=== PATIENT | female | born 1970 | race Caucasian/White ===

== ENCOUNTER 2016-10-22 01:35 | Emergency (ER) | payer MEDICARE, MEDICAID ==
--- NOTE | 2016-10-22 02:21 | ERNOTE ---
Chest Pain/Cardiac HPI Date of Service: 10/22/16 Chief Complaint: Chest Pain Time Seen by Provider: 10/22/16 02:09 Source: patient Exam Limitations: no limitations Immunizations: IMMUNIZATION HX Immunizations Up to Date Yes History of Influenza Vaccine Yes Hx Pneumococcal Vaccination No Allergies/Adverse Reactions: Allergies No Known Allergies Allergy (Verified 10/22/16 01:58) Home Medications: HOME MEDICATIONS Allopurinol [Zyloprim (Allopurinol)] 150 mg PO DAILY 02/03/15 [Last Taken Unknown] Cinacalcet HCl [Sensipar] 60 mg PO DAILY 02/03/15 [Last Taken Unknown] Sertraline HCl [Zoloft] 50 mg PO DAILY 02/03/15 [Last Taken Unknown] Sevelamer Carbonate [Renvela] 3,200 mg PO AC 02/03/15 [Last Taken Unknown] Oxycodone HCl/Acetaminophen [Oxycodone-Acetaminophen 5-325] 1 each PO Q6H PRN # 16 tablet 02/04/15 [Last Taken Unknown] Narrative: Here for chest pains that she has had for "long time". pain is specific in left side of chest and able to be reproduced. No radiation. at times it is pressure like and pt has been doing pulling and pushing activities. Denies any trauma to chest. Had dialysis this am. Has had some anxiety and pressure in the head Review of Systems - Review of Systems Constitutional: Present: no symptoms reported EYE: Present: no symptoms reported ENT: Present: no symptoms reported Respiratory: Present: no symptoms reported Cardiology: Present: See HPI Gastrointestinal/Abdominal: Present: no symptoms reported Genitourinary: Present: no symptoms reported Musculoskeletal: Present: See HPI Skin: Present: no symptoms reported - Patient's Past Medical History Patient History - Medical: Anxiety, Fibromyalgia, GERD, Renal Disease, Renal Failure, UTI'S, Other Patient History - Cardiac/Respiratory: Hypertension Patient History - Cancer: No Hx of Cancer Patient History - Surgical Procedures: Cholecystectomy, Other Patient History - Other: None LMP (females 10-50): 1 month LMP (Calendar): 02/02/16 - Social History Living Situations: significant other Abuse History: No History of abuse Psych History: Hx of Anxiety, Hx of Depression Smoking Status: Never smoker Have you smoked in the past 12 months: No Do you dip or chew tobacco: No Alcohol Use: none Drug Use: none - Immunizations Immunizations Up to Date: Yes Hx Pneumococcal Vaccination: No History of Influenza Vaccine: Yes Physical Exam - Physical Exam General Appearance: Present: wd/wn, alert, no apparent distress, anxious Eye Exam: Normal inspection: bilateral, PERRL: bilateral, EOMI: bilateral Ears, Nose, Throat: Present: normal ENT inspection Neck: Present: normal inspection Respiratory: Present: no respiratory distress Cardiovascular/Chest: Present: regular rate, rhythm - I do hear a blowing murmur in this patient., other - I am able to press on the left side of the patient's upper chest wall and reproduce the exact kind of pain the patient has been feeling. Pain is completely reproducible by my exam. Gastrointestinal/Abdominal: Present: normal bowel sounds ED Progress - Vital Signs Patient's Vital Signs:: I have reviewed the patient's vital signs. Vital Signs: Vital Signs 10/22/16 10/22/16 01:36 01:52 Temperature 37.9 C H Pulse Rate 83 85 Respiratory 18 Rate Blood Pressure 133/83 - X-Ray X-Ray #1 X-Ray: chest - normal - Progress/Reassessment Chief Complaint: Chest Pain Departure - Departure Clinical Impression: Costochondritis Disposition: Home self-care Condition: Good Instructions: Costochondritis, [id number]
[2016-10-22] MEDS ORDERED: ACETAMINOPHEN 500 MG TABLET PO ONE ×2 (02:33→02:34)
--- OUTSIDE RECORDS SUMMARY | 2016-10-22 02:39 | XMS REPORT | Continuity of Care Document ---
:1970 Author Organization [facility] ([facility]) Address [address] [place] [address] Phone [phone] Care Team Providers Name Role Phone Provider, No-Primary Care Primary Care Provider Unavailable Source Comments This disclosure is being made pursuant to the Care Everywhere program, applicable federal and state laws, and may not contain all informaitonavailable regarding this patient.[facility] ([facility]) Active Allergies and Adverse Reactions No Known Allergies Current Medications Prescription Sig. Disp. Refills Start Date End Date Status allopurinol (ZYLOPRIM) 300 take 300 mg by Active mg tablet mouth daily. atenolol (TENORMIN) 25 mg take 25 mg by Active tablet mouth daily. benazepril (LOTENSIN) 20 mg take 10 mg by Active tablet mouth daily. calcium acetate (PHOSLO) take 1 Tab by Active 667 mg capsule mouth 3 times daily with meals. colchicine 0.6 mg tablet take 0.3 mg by Active mouth daily. cyclobenzaprine (FLEXERIL) take 5 mg by Active 5 mg tablet mouth 3 times daily. DULoxetine (CYMBALTA) 60 mg take 60 mg by Active capsule mouth daily. furosemide (LASIX) 80 mg take 80 mg by Active tablet mouth as needed. HYDROcodone-acetaminophen take 1 Tab by Active (LORTAB) 5-500 mg per mouth every 6 tablet hours as needed. potassium chloride SA take 10 mEq by Active (K-DUR) 10 mEq tablet mouth 2 times daily. lansoprazole (PREVACID) 30 take 30 mg by Active mg capsule mouth daily. calcitriol (ROCALTROL) 0.25 take 0.25 mcg by Active mcg capsule mouth daily. Active Problems Problem Noted Date ESRD on dialysis 08/24/2012 Polycystic kidney disease, autosomal dominant 08/24/2012 Hypertension 08/24/2012 Obesity 08/24/2012 Gout 08/24/2012 H/O tubal ligation 08/24/2012 S/P cholecystectomy 08/24/2012 History of recurrent UTI (urinary tract infection) 08/24/2012 History of fibromyalgia 08/24/2012 Overview: Unconfirmed by history Hx of transient ischemic attack (TIA) 08/24/2012 Overview: Possible Immunizations Name Dates Previously Given Next Due Influenza, unspecified 05/28/2014,05/10/2013 Pneumococcal, unspecified 10/31/2014 Social History Tobacco Use Types Packs/Day Years Used Date Never Smoker Smokeless Tobacco: Never Used Alcohol Use Drinks/Week oz/Week Comments No Last Filed Vital Signs Vital Sign Reading Time Taken Blood Pressure 113/71 05/17/2015 10:00 AM CDT Pulse 68 05/17/2015 10:00 AM CDT Temperature 36.5 C (97.7 F) 08/23/2012 1:[address]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 Respiratory Rate 18 05/22/2009 10:16 AM CDT Height 1.71 m (5' 7.32") 08/23/2012 1:[address] SCIENTIST Weight 115.5 kg (254 lb 10.1 oz) 08/23/2012 1:[address] SCIENTIST Body Mass Index 39.5 08/23/2012 1:[address] SCIENTIST Oxygen Saturation - - Plan of Care Health Maintenance Due Date Last Done Comments Hepatitis B Vaccine (1 of 3 - Primary 1969 Series) Tdap Vaccine 1980 MMR Vaccine 1987 Td Vaccine 1987 Cervical Cancer Screening 1999 Mammogram 2009 Lipid Disorder Screening 05/22/2014 05/22/2009 Influenza Vaccine: Seasonal (#1) 03/09/2016 05/28/2014, 05/10/2013 Results from Last 3 Months Not on file
[2016-10-22 04:10] VITALS: BP 133/84
== END 2016-10-22 02:45 | disposition home or self-care (01) ==
LOC: ER 01:35
DX: M94.0 Chondrocostal junction syndrome [Tietze] (principal); Z87.440 Personal history of urinary (tract) infections; F41.9 Anxiety disorder, unspecified; F32.9 Major depressive disorder, single episode, unspecified; N18.6 End stage renal disease

== ENCOUNTER 2016-12-13 22:42 | Emergency (ER) | payer MEDICARE, MEDICAID ==
[2016-12-13 22:58] VITALS: BP 152/89
--- NOTE | 2016-12-13 23:08 | ERNOTE ---
Lower Extremity HPI - Narrative Date of Service: 12/13/16 - General Time Seen by Provider: 12/13/16 23:05 Source: patient Exam Limitations: no limitations - Immun/Allergies/Home Medications Immunizations: IMMUNIZATION HX Immunizations Up to Date Yes History of Influenza Vaccine Yes Hx Pneumococcal Vaccination Yes Allergies/Adverse Reactions: Allergies Allergy/AdvReac Type Severity Reaction Status Date / Time No Known Allergies Allergy Verified 12/13/16 22:57 Home Medications: HOME MEDICATIONS Allopurinol [Zyloprim (Allopurinol)] 150 mg PO DAILY 02/03/15 [Last Taken Unknown] Cinacalcet HCl [Sensipar] 60 mg PO DAILY 02/03/15 [Last Taken Unknown] Sertraline HCl [Zoloft] 50 mg PO DAILY 02/03/15 [Last Taken Unknown] Sevelamer Carbonate [Renvela] 3,200 mg PO AC 02/03/15 [Last Taken Unknown] oxyCODONE HCL/ACETAMINOPHEN [Oxycodone-Acetaminophen 5-325] 1 each PO Q6H PRN # 16 tablet 02/04/15 [Last Taken Unknown] - History of Present Illness Narrative: Here for swelling of right heel area for two months. Pt has no idea what happened but the pain has been getting progressively worse. She can not remember if there was any trauma. She is on dialysis. she has no complaints in any other limbs Review of Systems - Review of Systems Constitutional: Present: no symptoms reported EYE: Present: no symptoms reported ENT: Present: no symptoms reported Respiratory: Present: no symptoms reported Cardiology: Present: no symptoms reported Gastrointestinal/Abdominal: Present: no symptoms reported Musculoskeletal: Present: See HPI - Patient's Past Medical History Patient History - Medical: Anxiety, Fibromyalgia, GERD, Renal Disease, Renal Failure, UTI'S, Other Patient History - Cardiac/Respiratory: Hypertension Patient History - Cancer: No Hx of Cancer Patient History - Surgical Procedures: Cholecystectomy, Other Patient History - Other: None LMP (females 10-50): 1 month LMP (Calendar): 02/02/16 - Social History Living Situations: home Abuse History: No History of abuse Psych History: Hx of Anxiety, Hx of Depression Smoking Status: Never smoker Alcohol Use: none Drug Use: none - Immunizations Immunizations Up to Date: Yes Hx Pneumococcal Vaccination: Yes History of Influenza Vaccine: Yes Physical Exam - Physical Exam General Appearance: Present: wd/wn, alert, no apparent distress Respiratory: Present: no respiratory distress, normal breath sounds, no accessory muscle use, chest nontender, lungs clear Cardiovascular/Chest: Present: regular rate, rhythm, no murmur, normal peripheral pulses Extremity Exam: Present: other - There is swelling of the right calcaneal area. swelling is in the area of insertion of the right Achilles tendon. No redness, warmth or deformity note. Pt is well able to walk on it but it hurts with weight bearing. ED Progress - Vital Signs Patient's Vital Signs:: I have reviewed the patient's vital signs. Vital Signs: Vital Signs 12/13/16 22:48 Temperature 36.7 C Pulse Rate 68 Respiratory 14 Rate Blood Pressure 152/89 O2 Sat by Pulse 99 Oximetry - Progress/Reassessment Chief Complaint: Lower Extremity Pain/ Injury Plan - Plan Plan: The Xray of right foot appears to show some calcification of the Achilles tendon. Will apply compression dressing to the area and have pt follow up with PCP. Departure Clinical Impression: Achilles tendonitis Qualifiers: Laterality: right Qualified Code(s): M76.61 - Achilles tendinitis, right leg - Departure Disposition: Home self-care Condition: Good Instructions: Achilles Tendinitis
--- OUTSIDE RECORDS SUMMARY | 2016-12-13 23:10 | XMS REPORT | Continuity of Care Document ---
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
== END 2016-12-14 00:17 | disposition home or self-care (01) ==
LOC: ER 22:42
DX: M76.61 Achilles tendinitis, right leg (principal); N28.9 Disorder of kidney and ureter, unspecified; F41.9 Anxiety disorder, unspecified

== ENCOUNTER 2016-12-29 22:02 | Emergency (ER) | payer MEDICARE, MEDICAID ==
--- OUTSIDE RECORDS SUMMARY | 2016-12-29 22:39 | XMS REPORT | Continuity of Care Document ---
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
--- NOTE | 2016-12-29 22:47 | ERNOTE ---
Lower Extremity HPI - General Lower Extremities Pain: heel: right Time Seen by Provider: 12/29/16 22:32 Source: patient Exam Limitations: no limitations - Immun/Allergies/Home Medications Immunizations: IMMUNIZATION HX Immunizations Up to Date Yes History of Influenza Vaccine Yes Hx Pneumococcal Vaccination Yes Allergies/Adverse Reactions: Allergies Allergy/AdvReac Type Severity Reaction Status Date / Time No Known Allergies Allergy Verified 12/29/16 22:10 Home Medications: HOME MEDICATIONS Allopurinol [Zyloprim (Allopurinol)] 150 mg PO DAILY 02/03/15 [Last Taken Unknown] Cinacalcet HCl [Sensipar] 60 mg PO DAILY 02/03/15 [Last Taken Unknown] Sertraline HCl [Zoloft] 50 mg PO DAILY 02/03/15 [Last Taken Unknown] Sevelamer Carbonate [Renvela] 3,200 mg PO AC 02/03/15 [Last Taken Unknown] oxyCODONE HCL/ACETAMINOPHEN [Oxycodone-Acetaminophen 5-325] 1 each PO Q6H PRN # 16 tablet 02/04/15 [Last Taken Unknown] oxyCODONE HCL/ACETAMINOPHEN [Percocet 5 MG/325 MG] 1 tab PO TID PRN #10 tab [Last Taken Unknown] - History of Present Illness Narrative: Pt was running across the lawn and felt a "pop" and had no strength left in her right foot. Occurred: just prior to arrival Location of Incident: home Method of Injury: Reports: other - running Loss of Consciousness: Reports: no loss of consciousness Modifying Factors - (Improves): Reports: immobilization Modifying Factors - (Worsens): Reports: movement Associated Symptoms: Reports: unable to bear weight Other Injuries: Reports: none Review of Systems - Review of Systems Constitutional: Present: no symptoms reported. Absent: recent illness EYE: Present: no symptoms reported ENT: Present: no symptoms reported Respiratory: Present: no symptoms reported Cardiology: Present: no symptoms reported Gastrointestinal/Abdominal: Present: no symptoms reported Genitourinary: Present: no symptoms reported Musculoskeletal: Present: See HPI Skin: Present: no symptoms reported Neurological: Present: no symptoms reported Endocrine: Present: no symptoms reported Hematologic/Lymphatic: Present: no symptoms reported Psych: Present: no symptoms reported - Patient's Past Medical History Patient History - Medical: Anxiety, Fibromyalgia, GERD, Renal Disease, Renal Failure, UTI'S, Other Patient History - Cardiac/Respiratory: Hypertension Patient History - Cancer: No Hx of Cancer Patient History - Surgical Procedures: Cholecystectomy, Other Patient History - Other: None LMP (females 10-50): last week LMP (Calendar): 02/02/16 - Social History Living Situations: significant other Abuse History: No History of abuse Psych History: Hx of Anxiety, Hx of Depression Smoking Status: Never smoker Alcohol Use: none Drug Use: none - Immunizations Immunizations Up to Date: Yes Hx Pneumococcal Vaccination: Yes History of Influenza Vaccine: Yes Physical Exam - Physical Exam General Appearance: Present: wd/wn, alert, no apparent distress Ears, Nose, Throat: Present: normal ENT inspection Neck: Present: normal inspection, nontender, supple, full range of motion Respiratory: Present: no respiratory distress, no accessory muscle use Extremity Exam: Present: calf tenderness - right leg. achilles tendon at the insertion is flat. No movement of the foot with compression of the calf Neurological Exam: Present: alert, oriented, normal mood/affect, no motor/ sensory deficits Skin Exam: Present: normal color, warm/dry ED Progress - Vital Signs Vital Signs: Vital Signs 12/29/16 22:04 Temperature 36.5 C Pulse Rate 77 Respiratory 16 Rate Blood Pressure 125/77 O2 Sat by Pulse 100 Oximetry - X-Ray X-Ray #1 X-Ray: ankle Interpretation: Interp. by me X-ray Comments: no fracture or dislocation - Progress/Reassessment Chief Complaint: Lower Extremity Pain/ Injury Progress Note-Subjective: 12/29/16 22:[address] Norwood and he requested a cam boot, non-weight bearing and for her to call the office in the morning. discussed that there are operative and non-operative options that Dr. Norwood will discuss with her. Departure Clinical Impression: Achilles rupture, right Qualifiers: Encounter type: initial encounter Qualified Code(s): S86.011A - Strain of right Achilles tendon, initial encounter - Departure Disposition: Home Follow Up Needed Condition: Fair Instructions: Complete Achilles Tendon Rupture Additional Instructions: No weight bearing on that foot. keep elevated when possible. Called the orthopedics office in the morning for an appointment Referrals: Jaylen Mcintosh MD [Primary Care Provider] - Jhonatan Norwood MD [Staff Physician] - Prescriptions: oxyCODONE HCL/ACETAMINOPHEN [Percocet 5 MG/325 MG] 1 tab PO TID PRN #10 tab PRN Reason: Pain
[2016-12-29] MEDS ORDERED: HYDROcodone/ACETAMINOPHEN 1 EACH TABLET PO ONE (23:00)
[2016-12-29] MEDS ORDERED: HYDROcodone/ACETAMINOPHEN 1 EACH TABLET ONE (23:01)
[2016-12-29 23:49] VITALS: BP 120/77
== END 2016-12-29 23:17 | disposition home or self-care (01) ==
LOC: ER 22:02
DX: S86.011A Strain of right Achilles tendon, initial encounter (principal); X50.9XXA Other and unspecified overexertion or strenuous movements or postures, initial encounter; Y93.02 Activity, running; Y92.007 Garden or yard of unspecified non-institutional (private) residence as the place of occurrence of the external cause; F41.9 Anxiety disorder, unspecified; N28.9 Disorder of kidney and ureter, unspecified